=== PATIENT | male | born 1975 | race Asian ===

== ENCOUNTER 2025-05-17 16:46 | Inpatient (IN) | payer OTHER ==
[2025-05-17 17:02] VITALS: BMI 30.4
[2025-05-17] MEDS ORDERED: MAG HYDROX/AL HYDROX/SIMETH 30 ML UNIT-DOSE CUP PO PRN (17:51)
[2025-05-17] MEDS ORDERED: POLYETHYLENE GLYCOL (HEALTHYLAX) 3350 17 GM PACKET PO PRN (17:51)
[2025-05-17] MEDS ORDERED: BENZOCAINE/MENTHOL (CHLORASEPTIC ) LOZENGE MM PRN (17:51)
[2025-05-17] MEDS ORDERED: guaiFENesin 600 MG TABLET.ER (FP) PO PRN (17:51)
[2025-05-17] MEDS ORDERED: BENZONATATE 200 MG CAPSULE PO PRN (17:51)
[2025-05-17] MEDS ORDERED: ONDANSETRON *ODT* 4 MG TABLET SL PRN (17:51)
[2025-05-17] MEDS ORDERED: NALOXONE (NARCAN) HCL 4 MG/0.1 ML SPRAY NS PRN (17:51)
[2025-05-17] MEDS ORDERED: LOPERAMIDE HCL 2 MG CAPSULE PO PRN (17:51)
[2025-05-17] MEDS ORDERED: DICYCLOMINE HCL 10 MG CAPSULE PO PRN (17:51)
[2025-05-17] MEDS ORDERED: MAGNESIUM HYDROX 2400MG/30ML ORAL SUSPENSION 30 ML CUP PO PRN (17:51)
[2025-05-17] MEDS: INSULIN ASPART SLIDING SCALE (NOVOLOG) 1 VIAL SQ SCH (19:21)
[2025-05-17] MEDS: THIAMINE 100 MG TABLET PO SCH (22:13)
[2025-05-17] MEDS: MELATONIN 5 MG TABLETS PO SCH (22:13)
[2025-05-17] MEDS: ATORVASTATIN CA 40 MG TABLET (FP) PO SCH (22:15)
[2025-05-18] MEDS ORDERED: INSULIN ASPART SLIDING SCALE (NOVOLOG) 1 VIAL SQ SCH (07:00)
[2025-05-18] MEDS: metFORMIN HCL 500 MG TABLET (FP) PO SCH (07:46)
[2025-05-18] MEDS: LEVOTHYROXINE NA 25 MCG TABLET (FP) PO SCH (07:46)
[2025-05-18] MEDS: FOLIC ACID 1 MG TABLET (FP) PO SCH (10:37)
[2025-05-18] MEDS: LOSARTAN POTASSIUM 50 MG TABLET PO SCH (10:37)
[2025-05-18] MEDS: PRENATAL VITAMINS W/ FOLIC ACID TABLET (FP) PO SCH (10:37)
[2025-05-18 11:44] LABS: MCHC 32.8 g/dl (32.3-36.5); MEAN CELL VOLUME 85.9 fl (79.0-92.2); MEAN PLT VOLUME 11.4 fl (9.4-12.4); RDW 14.5 % (12.1-15.9)
[2025-05-18 11:53] LABS: GLUCOSE,RANDOM 119 mg/dL (74-106)
[2025-05-18 11:54] LABS: TOT PROT 6.0 g/dl (6.4-8.2)
[2025-05-18 11:55] LABS: CO2 25 mmol/L (21-32)
[2025-05-18 11:56] LABS: ALK PHOS 81 U/L (40-150)
[2025-05-18 11:59] LABS: CREATININE 0.87 mg/dL (0.55-1.3); SGOT/AST 77 U/L (5-34)
[2025-05-18 12:42] LABS: SGPT/ALT 41 U/L (0-55)
[2025-05-18] MEDS: POTASSIUM CHLORIDE ORAL LIQUID 20 MEQ/15 ML PO ONE (13:05)
[2025-05-18] MEDS: IBUPROFEN 600 MG TABLET (FP) PO PRN (13:09)
[2025-05-18] MEDS: ACETAMINOPHEN 325 MG TABLET (FP) PO PRN (17:22)
[2025-05-18] MEDS: hydrOXYzine PAMOATE 25 MG CAPSULE (FP) PO PRN (22:17)
[2025-05-19] MEDS: BISMUTH SUBSALICYLATE 524 MG/30 ML PO PRN (10:29)
[2025-05-19] MEDS: METHOCARBAMOL 500 MG TABLET PO PRN (20:25)
[2025-05-20] MEDS: IBUPROFEN 400 MG TABLET (FP) PO PRN (05:47)
[2025-05-20 17:00] VITALS: RESP 16
[2025-05-21 08:44] VITALS: BP 139/84; PULSE 86; TEMP 97.7
== END 2025-05-21 12:33 | disposition home or self-care (01) | DRG 775 ==
LOC: YASAS 16:46 → Y3N 18:44
PROVIDERS: ADMIT Neuromusculoskeletal Medicine & OMM; ATTEND Counselor Addiction (Substance Use Disorder)
PROC: HZ2ZZZZ Detoxification Services for Substance Abuse Treatment (ICD-10-PCS; principal; 2025-05-17)
DX: F10.230 Alcohol dependence with withdrawal, uncomplicated (principal); I10 Essential (primary) hypertension; E78.5 Hyperlipidemia, unspecified; E11.9 Type 2 diabetes mellitus without complications; E03.9 Hypothyroidism, unspecified; F32.A Depression, unspecified
CPT/HCPCS: 36415; 80053; 80305; 80307; 82962; 85027; 86780; 93005; 93010